=== PATIENT | female | born 1980 | race Caucasian/White ===

== ENCOUNTER 2016-11-12 05:37 | Inpatient (IN) | payer OTHER ==
[~2016-11-12] VITALS: Ht 162.6 cm; Wt 91.5 kg
[2016-11-12] MEDS ORDERED: OXYTOCIN 30 UNITS/LR 500 ML IV PRN (06:00)
[2016-11-12] MEDS ORDERED: METHYLERGONOVINE 0.2 MG INJ IM PRN (06:00)
[2016-11-12] MEDS ORDERED: MISOPROSTOL 200 MCG TAB PR PRN (06:00)
[2016-11-12] MEDS ORDERED: CARBOPROST 250 MCG INJ IM PRN (06:00)
[2016-11-12] MEDS ORDERED: CEFAZOLIN 2 GM/50 ML (PMX) 50 ML IV SCH (06:00)
[2016-11-12] MEDS ORDERED: OXYTOCIN 30 UNITS/LR 500 ML IV SCH (06:00)
[2016-11-12] MEDS ORDERED: CLINDAMYCIN 900 MG/D5W (PMX) 50 ML IV SCH (06:30)
[2016-11-12 06:32] VITALS: Ht 162.6 cm; Wt 91.5 kg
[2016-11-12 06:33] VITALS: BP 115/70; PULSE 85; RESP 16
[2016-11-12] MEDS: LACTATED RINGER'S 1,000 ML IV SCH ×3 (07:09→17:32)
[2016-11-12 07:10] LABS: ADD SCAN DIFF NO
[2016-11-12 07:14] LABS: BASOPHILS % 0.4 % (0.0-2.0); EOSINOPHILS # 0.1 10^3/ul (0.0-0.5); HEMOGLOBIN 11.2 g/dl (12.0-16.0); LYMPHOCYTES # 1.6 10^3/ul (0.8-2.9); LYMPHOCYTES % 24.3 % (15.0-51.0); MEAN CORPUSCULAR HEMOGLOBIN 29.6 pg (29.0-33.0); MEAN CORPUSCULAR HGB CONC 32.9 g/dl (32.0-37.0); MEAN CORPUSCULAR VOLUME 89.9 fl (82.0-101.0); MONOCYTE # 0.6 10^3/ul (0.3-0.9); MONOCYTES % 8.2 % (0.0-11.0); NEUTROPHIL # 4.3 10^3/ul (1.6-7.5); NEUTROPHILS % 64.5 % (39.0-77.0); PLATELET COUNT 181 10^3/UL (140-415); RED BLOOD COUNT 3.78 10^6/ul (4.20-5.40); RED CELL DISTRIBUTION WIDTH 14.4 % (11.5-14.5); WHITE BLOOD COUNT 6.7 10^3/ul (4.8-10.8)
[2016-11-12 07:30] LABS: INR 0.96; PROTIME 12.8 Sec (12.2-14.2)
[2016-11-12] MEDS ORDERED: METOCLOPRAMIDE 10 MG INJ ONE (08:44)
[2016-11-12] MEDS ORDERED: KETOROLAC 30 MG INJ ONE (08:44)
[2016-11-12] MEDS ORDERED: morphine SULFATE/PF (10 MG/10 ML) INJ ONE (08:44)
[2016-11-12] MEDS ORDERED: CITRIC ACID/SODIUM CITRATE 15 ML CUP PO ONE (09:00)
[2016-11-12] MEDS ORDERED: MEPERIDINE 25 MG INJ IV PRN (10:30)
[2016-11-12] MEDS ORDERED: HYDROmorphONE (0.2 MG/ML) 10ML SYG IV PRN ×3 (10:30)
[2016-11-12] MEDS ORDERED: ONDANSETRON 4 MG INJ IV PRN ×2 (10:30→12:30)
[2016-11-12] MEDS ORDERED: DIPHENHYDRAMINE 50 MG INJ IV PRN ×2 (10:30→12:30)
[2016-11-12] MEDS ORDERED: METOCLOPRAMIDE 10 MG INJ IV PRN (10:30)
[2016-11-12] MEDS ORDERED: OXYTOCIN 30 UNITS/LR 500 ML IV ONE (10:41)
--- NOTE | 2016-11-12 10:55 | HP ---
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 Rubella: immune RPR/VDRL: Negative GBS Status: Negative HBsAG: Negative OB Admission Exam Vital Signs Vital Signs Vital Signs Date Time Temp Pulse Resp B/P Pulse Ox O2 Delivery O2 Flow Rate FiO2 11/12/16 06:33 97.8 85 16 115/70 Room Air Physical Exam HEENT: WNL Heart: Rhythm Normal Lungs: Clear, Equal Abdomen: WNL Extremities: Normal Reflexes: Normal Cervical Dilatation: None Effacement: 0% Station: -3 Membranes: Intact Heart Rate: 130's Accelerations: Accelerations Present Decelerations: No Decelerations Varibility: Absent Last 72 hours Lab Results CBC & BMP 11/12/16 06:20 RENEE MEAD MD November 12, 2016 10:55
[2016-11-12] MEDS ORDERED: NALOXONE (0.4 MG/ML) INJ IV PRN (12:30)
[2016-11-12] MEDS ORDERED: HYDROmorphONE 1 MG/ML SYG IV PRN ×3 (12:30)
--- NOTE | 2016-11-12 12:34 | OPR ---
DATE OF OPERATION: 11/12/2016 PREOPERATIVE DIAGNOSES: 1. Intrauterine at 39 weeks and 2 days. 2. A history of recent herpes outbreak. POSTOPERATIVE DIAGNOSES: 1. Intrauterine at 39 weeks and 2 days. 2. A history of recent herpes outbreak. OPERATION PERFORMED: Primary transverse low cervical section. SURGEON: Renee Gonzales MD BILLING AUDITOR: Ximena Coon MD ANESTHESIA: Spinal. ANESTHESIOLOGIST: Dr. Gustafson FINDINGS: Live baby girl with Apgars of 9 and 9. DETAILS OF THE PROCEDURE: Under satisfactory spinal anesthesia, the patient was prepped and draped and placed in the supine position, tilted to the left. Pfannenstiel incision was made, incision was carried through the subcutaneous tissue. Bleeders were brought under control with electrocautery. Fascia was incised to the length of the incision. Rectus muscle was divided in the midline. Perit oneum was exposed, entered through a transverse incision. Exploration of abdomen. Gravid uterus, n ormal-appearing tubes and ovaries. A bladder flap was developed. A transverse incision was made in the lower segment of the uterus. Amniotic sac ruptured. Clear amniotic fluid noted. A live baby girl was delivered from an unengaged vertex. Nasal oropharyngeal suction was performed. Baby was h anded to the team for immediate attention. Patient received 20 units of Pitocin. The plac enta delivered manually intact. Uterine cavity was cleaned with a wet sponge. Drainage established . Uterus was closed in 2 layers using Monocryl #1 in continuous fashion. Peritoneal cavity was irr igated with warm saline. Sponge, needle and instrument were reported to be correct. Abdominal alexei toneum was closed with 2-0 chromic catgut continuously. Rectus muscle was approximated with 2 inter rupted 2-0 chromic catgut. Fascia was closed with #1 PDS in a continuous fashion. Subcutaneous tis cassandra was approximated with interrupted 2-0 chromic catgut. Skin was closed with caty. Estimated blood loss was 600 mL. Urine bag contained 200 mL of clear urine. Patient tolerated the procedure well, was transferred to the recovery room in good condition. Dictated By: RENEE GOLDSMITH/NTS Conf#: [id number] DID#: [id number]
[2016-11-12 13:30] VITALS: BP 143/58; PULSE 83; RESP 18
[2016-11-12 14:30] VITALS: BP 132/59; PULSE 62; RESP 18
[2016-11-12 16:00] VITALS: BP 116/70; PULSE 17; RESP 17
[2016-11-12 19:45] VITALS: BP 129/75; PULSE 65; RESP 18
[2016-11-13] VITALS: BP 121/72; PULSE 72; RESP 18
[2016-11-13] MEDS: LACTATED RINGER'S 1,000 ML IV SCH (00:02)
[2016-11-13 04:18] VITALS: BP 104/64; PULSE 81; RESP 17
[2016-11-13] MEDS: KETOROLAC 30 MG INJ IV PRN ×2 (04:18→09:44)
[2016-11-13 08:00] VITALS: BP 121/69; PULSE 79; RESP 18
[2016-11-13 08:03] LABS: ADD SCAN DIFF NO
[2016-11-13 08:09] LABS: BASOPHILS % 0.1 % (0.0-2.0); EOSINOPHILS % 0.3 % (0.0-7.0); HEMATOCRIT 25.9 % (37.0-47.0); HEMOGLOBIN 8.2 g/dl (12.0-16.0); LYMPHOCYTES # 0.9 10^3/ul (0.8-2.9); MEAN CORPUSCULAR HGB CONC 31.7 g/dl (32.0-37.0); MEAN CORPUSCULAR VOLUME 91.5 fl (82.0-101.0); MEAN PLATELET VOLUME 10.9 fl (7.4-10.4); MONOCYTE # 0.6 10^3/ul (0.3-0.9); MONOCYTES % 8.1 % (0.0-11.0); NEUTROPHIL # 5.6 10^3/ul (1.6-7.5); NEUTROPHILS % 77.5 % (39.0-77.0); PLATELET COUNT 161 10^3/UL (140-415); RED BLOOD COUNT 2.83 10^6/ul (4.20-5.40); RED CELL DISTRIBUTION WIDTH 14.8 % (11.5-14.5); WHITE BLOOD COUNT 7.3 10^3/ul (4.8-10.8)
[2016-11-13] MEDS: IBUPROFEN 600 MG TAB PO SCH ×3 (11:04→23:55)
--- NOTE | 2016-11-13 11:39 | PN ---
Date/Time of Note Date/Time of Note DATE: 11/13/16 TIME: 11:38 OB Subjective Subjective Subjective Post day 1 Afebrile vital signs are stable, abdomen soft, incision dry bowel sounds present lochia moderate extremity normal ambulation encouraged Laboratory Tests Test 11/13/16 06:45 White Blood Count 7.310^3/ul Red Blood Count 2.8310^6/ul Hemoglobin 8.2g/dl Hematocrit 25.9% Mean Corpuscular Volume 91.5fl Mean Corpuscular Hemoglobin 29.0pg Mean Corpuscular Hemoglobin Concent 31.7g/dl Red Cell Distribution Width 14.8% Platelet Count 33279^3/UL Mean Platelet Volume 10.9fl Neutrophils % 77.5% Lymphocytes % 13.0% Monocytes % 8.1% Eosinophils % 0.3% Basophils % 0.1% Nucleated Red Blood Cells % 0.0/100WBC Neutrophils # 5.610^3/ul Lymphocytes # 0.910^3/ul Monocytes # 0.610^3/ul Eosinophils # 0.010^3/ul Basophils # 0.010^3/ul Nucleated Red Blood Cells # 0.010^3/ul Current Medications Medications (Trade) Dose Ordered Sig/Jem Route PRN Reason Start Time Stop Time Status Last Admin Dose Admin Cefazolin Sodium/ Dextrose 50 ml @ 100 mls/hr ONCE IV 11/12/16 06:00 Cancel Oxytocin/Lactated Ringer's 500 ml @ 125 mls/hr ONCE IV 11/12/16 06:00 11/12/16 12:58 DC 11/12/16 11:08 Oxytocin/Lactated Ringer's 500 ml @ 0 mls/hr ONCE PRN IV For Hemorrhage Management 11/12/16 06:00 11/12/16 13:24 Methylergonovine Maleate (Methergine) 0.2 mg ONCE PRN IM VAGINAL BLEEDING 11/12/16 06:00 11/12/16 12:58 DC Carboprost Tromethamine (Hemabate) 250 mcg ONCE PRN IM VAGINAL BLEEDING 11/12/16 06:00 Misoprostol 1000 mcg 1,000 mcg ONCE PRN HI VAGINAL BLEEDING 11/12/16 06:00 11/12/16 12:58 DC Clindamycin HCl/ Dextrose 50 ml @ 50 mls/hr ONCE IV 11/12/16 06:30 11/12/16 12:58 DC Lactated Ringer's (Lr) 1,000 ml @ 125 mls/hr Q8H IV 11/12/16 06:35 11/13/16 00:02 Citric Acid/ Sodium Citrate (Bicitra) 30 ml ONCE ONCE PO 11/12/16 09:00 11/12/16 09:01 DC 11/12/16 09:02 Morphine Sulfate (Duramorph) 10 mg STK-MED ONCE .ROUTE 11/12/16 08:44 11/12/16 08:45 DC Metoclopramide HCl (Reglan) 10 mg STK-MED ONCE .ROUTE 11/12/16 08:44 11/12/16 08:45 DC Ketorolac Tromethamine (Toradol) 30 mg STK-MED ONCE .ROUTE 11/12/16 08:44 11/12/16 08:45 DC Hydromorphone HCl (Dilaudid (Rec)) 0.2 mg PACU ORDER PRN IV MILD PAIN LEVEL 1-3 11/12/16 10:30 11/12/16 12:58 DC Hydromorphone HCl (Dilaudid (Rec)) 0.4 mg PACU ORDER PRN IV MODERATE PAIN LEVEL 4-6 11/12/16 10:30 11/12/16 12:58 DC Hydromorphone HCl (Dilaudid (Rec)) 0.6 mg PACU ORDER PRN IV SEVERE PAIN LEVEL 7-10 11/12/16 10:30 11/12/16 12:58 DC Ondansetron HCl (Zofran Inj) 4 mg PACU ORDER PRN IV NAUSEA AND/OR VOMITING 11/12/16 10:30 11/12/16 12:58 DC Metoclopramide HCl (Reglan) 10 mg PACU ORDER PRN IV NAUSEA AND/OR VOMITING 11/12/16 10:30 11/12/16 12:58 DC 11/12/16 12:09 Meperidine HCl (Demerol) 25 mg PACU ORDER PRN IV POST-OP RIGORS 11/12/16 10:30 11/12/16 12:58 DC Diphenhydramine HCl 25 mg 25 mg PACU ORDER PRN IV PRURITUS 11/12/16 10:30 11/12/16 20:00 DC Oxytocin/Lactated Ringer's 500 ml @ ud STK-MED ONCE IV 11/12/16 10:41 11/12/16 10:42 DC Naloxone HCl (Narcan) 0.1 mg Q2M PRN IV FOR RESP RATE 8 OR LESS 11/12/16 12:30 11/13/16 12:29 Ketorolac Tromethamine (Toradol) 30 mg Q6H PRN IV PAIN 11/12/16 12:30 11/13/16 12:29 11/13/16 09:44 Hydromorphone HCl (Dilaudid) 1 mg Q3H PRN IV BREAKTHROUGH PAIN 11/12/16 12:30 11/13/16 12:29 Hydromorphone HCl (Dilaudid) 0.2 mg Q3H PRN IV PAIN LEVEL 1-5 11/12/16 12:30 11/13/16 12:29 Hydromorphone HCl (Dilaudid) 0.4 mg Q3H PRN IV PAIN LEVEL 6-10 11/12/16 12:30 11/13/16 12:29 Diphenhydramine HCl (Benadryl) 25 mg Q6H PRN IV ITCHING 11/12/16 12:30 11/13/16 12:29 Ondansetron HCl (Zofran Inj) 4 mg Q6H PRN IV NAUSEA AND/OR VOMITING 11/12/16 12:30 11/13/16 12:29 Ibuprofen (Motrin) 600 mg Q6 PO 11/13/16 12:00 Acetaminophen/ Hydrocodone Bitart ([place] (5/325)) 2 tab Q4H PRN PO NEEDED FOR PAIN 11/13/16 11:00 11/15/16 18:00 RENEE MEAD MD November 13, 2016 11:39
[2016-11-13 16:04] VITALS: BP 123/68; PULSE 83; RESP 17
[2016-11-13] MEDS: HYDROCODONE/APAP (5/325) TAB PO PRN ×2 (16:28→20:55)
[2016-11-13 20:00] VITALS: BP 123/63; PULSE 76; RESP 18
--- NOTE | 2016-11-13 21:12 | PN ---
Date/Time of Note Date/Time of Note DATE: 11/13/16 TIME: 21:09 Assessment/Plan VTE Prophylaxis VTE Prophylaxis Intervention: ambulation Lines/Catheters IV Catheter Type (from Nrsg): Peripheral IV Subjective 24 Hr Interval Summary Free Text/Dictation anesthesia note: A 36 year female s/p duramorphbfor post op pain pod#1 is doing well. pain is controlled, no n/v, itching, headace, back pain or inflammation. care per surgery team. Exam/Review of Systems Vital Signs Vitals Vital Signs Date Time Temp Pulse Resp B/P Pulse Ox O2 Delivery O2 Flow Rate FiO2 11/13/16 16:04 99.2 83 17 123/68 Room Air 11/13/16 08:45 96 21 Intake and Output 11/12/16 11/12/16 11/13/16 15:00 23:00 07:00 Intake Total 2575 ml 625 ml 2025 ml Output Total 600 ml 600 ml 500 ml Balance 1975 ml 25 ml 1525 ml Results Result Diagram: 11/13/16 0645 Results 24 hrs Laboratory Tests Test 11/13/16 06:45 White Blood Count 7.3 Red Blood Count 2.83 #L Hemoglobin 8.2 #L Hematocrit 25.9 #L Mean Corpuscular Volume 91.5 Mean Corpuscular Hemoglobin 29.0 Mean Corpuscular Hemoglobin Concent 31.7 L Red Cell Distribution Width 14.8 H Platelet Count 161 Mean Platelet Volume 10.9 H Neutrophils % 77.5 H Lymphocytes % 13.0 L Monocytes % 8.1 Eosinophils % 0.3 Basophils % 0.1 Nucleated Red Blood Cells % 0.0 Neutrophils # 5.6 Lymphocytes # 0.9 Monocytes # 0.6 Eosinophils # 0.0 Basophils # 0.0 Nucleated Red Blood Cells # 0.0 Medications Medications Current Medications Oxytocin/Lactated Ringer's 500 ml @ 0 mls/hr ONCE PRN IV For Hemorrhage Management Last administered on 11/12/16 13:24; Admin Dose 125 MLS/HR; Start at 06:00 Carboprost Tromethamine (Hemabate) 250 mcg ONCE PRN IM VAGINAL BLEEDING; Start 11/12/16 at 06:00 Ibuprofen (Motrin) 600 mg Q6 PO Last administered on 11/13/16 18:49; Admin Dose 600 MG; Start 11/13/16 at 12:00 Acetaminophen/ Hydrocodone Bitart ([place] (5)) 2 tab Q4H PRN PO NEEDED FOR PAIN Last administered on 11/13/16t 20:55; Admin Dose 2 TAB; Start 11/13/16 at 11:00; Stop 11/15/16 at 18:00 TONI MEDRANO MD November 13, 2016 21:12
[2016-11-14 04:00] VITALS: BP 108/62; PULSE 76; RESP 19
[2016-11-14] MEDS: IBUPROFEN 600 MG TAB PO SCH ×3 (05:42→17:22)
[2016-11-14 07:50] VITALS: BP 118/73; PULSE 72; RESP 18
[2016-11-14] MEDS: HYDROCODONE/APAP (5/325) TAB PO PRN ×2 (10:33→20:45)
--- NOTE | 2016-11-14 13:59 | PN ---
Date/Time of Note Date/Time of Note DATE: 11/14/16 TIME: 13:57 OB Subjective Subjective Subjective Post day 2 Afebrile vital signs stable abdomen soft incision healing well lochia moderate extremity normal bowel sounds present ambulation encouraged enema recommended . RENEE MEAD MD November 14, 2016 13:59
[2016-11-14 15:30] VITALS: BP 137/70; PULSE 74; RESP 18
[2016-11-14 20:10] VITALS: BP 111/63; PULSE 78; RESP 18
[2016-11-15] MEDS: IBUPROFEN 600 MG TAB PO SCH ×4 (00:23→18:34)
[2016-11-15 04:00] VITALS: BP 119/65; PULSE 75; RESP 18
[2016-11-15 08:15] VITALS: BP 120/71; PULSE 71; RESP 17
--- NOTE | 2016-11-15 09:57 | DS ---
Date/Time of Note Date/Time of Note DATE: 11/15/16 TIME: 09:50 Discharge Summary Admission/Discharge Info Admit Date/Time November 12, 2016 at 05:37 Discharge Date/Time November 15 at 0 950 Final Diagnosis Day 3 post primary due to recent herpes outbreak Procedures Primary Hx of Present Illness Term recent flare up of type II HSV Hospital Course Satisfactory uneventful Follow-up Plan Appointment clinic in 6 days to discontinue caty Primary Care Provider Care Physician No Primary Time spent on discharge: < 30 minutes RENEE MEAD MD November 15, 2016 09:57
[2016-11-15 16:00] VITALS: BP 129/65; PULSE 70; RESP 18
[2016-11-15] MEDS: HYDROCODONE/APAP (5/325) TAB PO PRN ×2 (17:07→18:27)
[2016-11-15 20:15] VITALS: BP 110/71; PULSE 71; RESP 18
[2016-11-16] MEDS: IBUPROFEN 600 MG TAB PO SCH ×3 (00:41→12:19)
[2016-11-16 04:10] VITALS: BP 108/70; PULSE 75; RESP 18
[2016-11-16 08:15] VITALS: BP 118/74; PULSE 77; RESP 19
== END 2016-11-16 15:40 | disposition home or self-care (01) | DRG 765 ==
LOC: L-D 05:37 → PP1 13:33
PROVIDERS: ADMIT Obstetrics & Gynecology; ATTEND Obstetrics & Gynecology
PROC: 10D00Z1 Extraction of Products of Conception, Low, Open Approach (ICD-10-PCS; principal; 2016-11-12 09:00)
DX: O98.32 Other infections with a predominantly sexual mode of transmission complicating childbirth (principal); O99.834 Other infection carrier state complicating childbirth; Z22.8 Carrier of other infectious diseases; A60.09 Herpesviral infection of other urogenital tract; O34.219 Maternal care for unspecified type scar from previous cesarean delivery; Z3A.39 39 weeks gestation of pregnancy; Z37.0 Single live birth
CPT/HCPCS: 85025; 85610; 85730; 86592; 86850; 86900; 86901; 87340; 88307; 94760; 99464; J1885; J2274; J2590; J2765; J7120

== ENCOUNTER 2017-11-18 09:29 | Emergency (ER) | END 2017-11-18 11:25 | disposition home or self-care (01) ==